=== PATIENT | female | born 1995 | race Caucasian/White ===

== ENCOUNTER 2017-10-16 21:06 | Emergency (ER) | payer OTHER ==
[2017-10-16 21:15] VITALS: BP 137/65
[2017-10-16] MEDS ORDERED: ERYTHROMYCIN 0.5% 1 GM OPHT.OINT ONE (21:17)
[2017-10-16] MEDS ORDERED: IBUPROFEN 600 MG TAB PO ONE ×2 (21:17→21:22)
[2017-10-16] MEDS ORDERED: SULFACETAMIDE DROPS 10% PREPACK OPHT.BTL TAKEHOME ONE (21:22)
--- NOTE | 2017-10-16 21:29 | EDPHY ---
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 She reports 6 /10 discomfort to the eye and slightly blurred vision. She denies any acute injuries or other complaints. She has not taken any medications for the ailment. ROS: Constitutional: No fevers HEENT: No URI symptoms or recent lip lesions. No left eye symptoms. Integumentary: No skin rash 5 point ROS is otherwise negative Past Medical/Surgical History: Otherwise healthy Smoking Status: Never smoked Physical Exam: Physical Exam Vital signs are normal. General: No acute distress HEENT: Atraumatic. No coryza. No lip lesions. No skin rash. Eyes: Pupils equal and react to light. Extraocular motions are intact. There is conjunctival injection of the right eye with mild upper eyelid swelling. There is purulent discharge from the eye. On slit-lamp exam appreciate no corneal lesions. No foreign bodies are evident. No hypopyon or other anterior chamber findings. Cardiac: Brisk capillary refill is intact throughout. Skin: No rash or pallor. Neuro: Alert. Initial differential diagnosis: Bacterial conjunctivitis, viral conjunctivitis , blepharitis Constitutional: Initial Vital Signs Temperature (C) 37.0 C 10/16/17 21:10 Heart Rate 68 10/16/17 21:10 Respiratory Rate 16 10/16/17 21:10 Blood Pressure 137/65 H 10/16/17 21:10 O2 Sat (%) 97 10/16/17 21:10 O2 Delivery Mode Room Air Allergies/Adverse Reactions: No Known Allergies Allergy (Unverified 10/16/17 21:12) Home Medications: Medication Instructions Recorded NK [No Known Home Meds] 10/16/17 MDM/Departure - MDM Medications Given: Discontinued Medications Ibuprofen (Motrin) 600 mg PO EDNOW ONE Stop: 10/16/17 21:23 Last Admin: 10/16/17 21:28 Dose: 600 mg Sulfacetamide (Bleph-10 10% Opht Drops Prepack) 1 btl TAKEHOME EDNOW ONE Stop: 10/16/17 21:23 Last Admin: 10/16/17 21:28 Dose: 1 btl ED Course/Re-evaluation: Given eye lash matting purulent discharge and unilateral findings, exam and history are consistent with bacterial conjunctivitis. I counseled patient regarding this. She is administered sulfacetamide eyedrops and ibuprofen. Instructed her on conjunctivitis care. She will follow up with Dr. Kang-features editor for any ongoing symptoms. - Depart Disposition: Home, Routine, Self-Care Clinical Impression: Conjunctivitis Qualifiers: Conjunctivitis type: acute Acute conjunctivitis type: bacterial Laterality: right Qualified Code(s): H10.31 - Unspecified acute conjunctivitis, right eye Condition: Good Instructions: Conjunctivitis (ED) Additional Instructions: Diagnosis: Bacterial conjunctivitis Plan: Wash hands frequently Plan warm packs to affected eye Instill the antibiotic drops as prescribed Ibuprofen Tylenol for discomfort as needed. No work for the next 2 days. Follow up with Dr. Kang-features editor if he have any ongoing symptoms despite treatment plan Return emergency department for any worsening despite the treatment plan Stand Alone Forms: Work Excuse Referrals: Farhan Kang MD [Medical Doctor] - As per Instructions
== END 2017-10-16 21:37 | disposition home or self-care (01) ==
LOC: CED 21:06
DX: H10.31 Unspecified acute conjunctivitis, right eye (principal)

== ENCOUNTER → 2018-08-05 | Outpatient (CLI) | payer OTHER | LOC: BMCIMAGING 10:40 | PROVIDERS: ATTEND Internal Medicine | DX: M25.562 Pain in left knee (principal) ==

== ENCOUNTER → 2018-10-12 | Outpatient (CLI) | payer OTHER | LOC: BMCIMAGING 16:47 ==